=== PATIENT | female | born 1980 | race American Indian/Alaskan Native ===

== ENCOUNTER 2017-01-11 20:13 | Emergency (ER) | payer BC ==
[~2017-01-11] VITALS: Ht 165.1 cm; Wt 124.0 kg
[2017-01-11 20:14] VITALS: BP 127/83
[2017-01-11] MEDS ORDERED: FLUORESCEIN OPHTHALMIC 1 MG STRIP EACHEYE ONE (20:30)
[2017-01-11] MEDS ORDERED: PROPARACAINE OPHTH 0.5%, 15ML EACHEYE ONE (20:30)
== END 2017-01-11 21:38 | disposition home or self-care (01) ==
LOC: ED 21:32
DX: H10.023 Other mucopurulent conjunctivitis, bilateral (principal)
CPT/HCPCS: 99283

== ENCOUNTER 2017-02-08 14:42 | Emergency (ER) | payer BC ==
[~2017-02-08] VITALS: Ht 165.1 cm; Wt 122.6 kg
[2017-02-08] MEDS ORDERED: DIPHENHYDRAMINE 50 MG/ML, 1ML IVPush ONE (15:30)
[2017-02-08] MEDS ORDERED: SODIUM CHLORIDE 0.9% 1,000ML IVBOLUS ONE (15:30)
[2017-02-08] MEDS ORDERED: KETOROLAC 30 MG/1 ML IVPush ONE (15:30)
[2017-02-08] MEDS ORDERED: PROCHLORPERAZINE 5 MG/ML, 2ML IVPush ONE (15:30)
[2017-02-08] MEDS ORDERED: SODIUM CHLORIDE FLUSH 10ML SYR IVF ONE (15:30)
[2017-02-08] MEDS ORDERED: KETOROLAC 30 MG/1 ML ONE (15:43)
[2017-02-08] MEDS ORDERED: DIPHENHYDRAMINE 50 MG/ML, 1ML ONE (15:43)
[2017-02-08] MEDS ORDERED: PROCHLORPERAZINE 5 MG/ML, 2ML ONE (15:43)
[2017-02-08 16:21] VITALS: BP 107/73
== END 2017-02-08 16:43 | disposition home or self-care (01) ==
LOC: ED 16:35
DX: G43.019 Migraine without aura, intractable, without status migrainosus (principal)
CPT/HCPCS: 96361; 96374; 96375; 99284; J0780; J1200; J1885; J7030

== ENCOUNTER 2017-02-13 15:58 | Emergency (ER) | payer BC ==
[~2017-02-13] VITALS: Ht 165.1 cm; Wt 124.2 kg
[2017-02-13 16:10] VITALS: BP 133/84
== END 2017-02-13 16:59 | disposition home or self-care (01) ==
LOC: ED 16:53
DX: B34.9 Viral infection, unspecified (principal); G43.909 Migraine, unspecified, not intractable, without status migrainosus
CPT/HCPCS: 71020; 99284

== ENCOUNTER 2017-12-27 14:43 | Emergency (ER) | payer BC ==
[~2017-12-27] VITALS: Ht 165.1 cm; Wt 134.4 kg
[2017-12-27 14:45] VITALS: BP 131/84
== END 2017-12-27 15:43 | disposition home or self-care (01) ==
LOC: ED 15:00
DX: H66.002 Acute suppurative otitis media without spontaneous rupture of ear drum, left ear (principal); B34.9 Viral infection, unspecified; G43.909 Migraine, unspecified, not intractable, without status migrainosus; G89.29 Other chronic pain; E66.9 Obesity, unspecified
CPT/HCPCS: 71046; 99284